=== PATIENT | male | born 1940 | race Caucasian/White ===

== ENCOUNTER 2019-08-15 17:27 | Emergency (ER) | payer MEDICARE ==
--- NOTE | 2019-08-15 18:03 | ERPHSYRPT ---
- History of Present Illness Source: patient, family () Exam Limitations: no limitations Patient Subjective Stated Complaint: Pt states "I was told to take synthroid and a new blood pressure med and the first time I started to take them I had these same symptoms. I am twitching and have these involuntary movements and I cannot control my movements. I was told to try them again and I tried them again on fri and now the symptoms are worse." Triage Nursing Assessment: Pt presented alert and oriented X 3, skin pwd Pt havig uncontrollable muscle movement. pt in no apparent respiratory distress. Timing/Duration: other (difficult to establish a time-line) Severity: moderate Character of Deficits: Left Facial (more so in the neck muscles, choreiform movements), LUE (choreiform movements) Deficits: off balance (left leg involved to a less extent than the arm) Baseline/Normal Cognition: alert oriented x 3 Current Cognition: alert oriented x 3 Baseline Gait: walks w/o assistance (some difficulty) Associated Symptoms: denies symptoms, No confusion, No fever, No seizures Hx Tetanus, Diphtheria Vaccination/Date Given: Yes Hx Influenza Vaccination/Date Given: Yes Hx Pneumococcal Vaccination/Date Given: Yes Immunizations Up to Date: Yes <DELGADO KOENIG - Last Filed: 08/15/19 19:58> <AARON KILGORE - Last Filed: 08/15/19 21:37> - History of Present Illness Time Seen by Provider: 08/15/19 18:02 Physician History: LITA Landers in [facility] had him recently on norvasc, after a few weeks on that, started synthroid, then developed movement disorder type symptoms, he thinks from the synthroid. Stopped norvasc and synthroid and he returned to normal. LITA Landers had him restart the synthroid only, and the movement disorder started again. He is not on anti-psychotics. No recent illness (sore throat). No hx Parkinson's or any neuro disorder. (DELGADO KOENIG) Allergies/Adverse Reactions: No Known Drug Allergies Allergy (Verified 08/15/19 17:43) Home Medications: Amlodipine Besylate 5 mg [Norvasc 5 mg] 5 mg PO DAILY 08/15/19 [History] Aspirin [Aspirin EC] 81 mg PO 08/15/19 [History] Etanercept [Enbrel] 50 mg SQ WEEKLY 08/15/19 [History] Levothyroxine Sodium 25 Mcg [Synthroid 25 Mcg] 25 mcg PO DAILY 08/15/19 [ History] - Review of Systems Constitutional: No Symptoms Eyes: No Symptoms Ears, Nose, & Throat: No Symptoms Respiratory: No Symptoms Cardiac: No Symptoms Abdominal/Gastrointestinal: No Symptoms Genitourinary Symptoms: No Symptoms Musculoskeletal: No Symptoms Skin: No Symptoms Neurological: Other (choreiform movements) Psychological: No Symptoms Endocrine: No Symptoms Hematologic/Lymphatic: No Symptoms Immunological/Allergic: No Symptoms All Other Systems: Reviewed and Negative <DELGADO KOENIG - Last Filed: 08/15/19 19:58> - Past Medical History Pertinent Past Medical History: Yes Neurological History: No Pertinent History ENT History: Cataracts Cardiac History: High Cholesterol, Hypertension Respiratory History: No Pertinent History Endocrine Medical History: Hyperthyroidism Musculoskeletal History: No Pertinent History GI Medical History: GERD History: No Pertinent History Psycho-Social History: No Pertinent History Male Reproductive Disorders: No Pertinent History - Past Surgical History Past Surgical History: No Neuro Surgical History: No Pertinent History - Social History Smoking Status: Former smoker Exposure to second hand smoke: No Drug Use: none Patient Lives Alone: No <DELGADO KOENIG - Last Filed: 08/15/19 19:58> - [place] Coma Scale Best Eye Response ([place]): (4) open spontaneously Best Verbal Response ([place]): (5) oriented Best Motor Response ([place]): (6) obeys commands [place] Total: 15 - Physical Exam General Appearance: no apparent distress, alert, other (choreiform ) Eye Exam: bilateral eye: normal inspection, PERRL, EOMI Ears, Nose, Throat Exam: normal ENT inspection Neck Exam: normal inspection, non-tender Respiratory: normal breath sounds Cardiovascular: regular rate/rhythm Gastrointestinal: soft Rectal Exam: deferred Back Exam: normal inspection Extremity Exam: normal inspection, normal range of motion Mental Status: alert, oriented x 3, cooperative explosive operator Exam: normal hearing, normal speech, PERRL Coordination/Gait: abnormal gait (choreiform) Motor/Sensory: weak motor strength LUE (choreiform movements, anastacio. left arm, somewhat left neck) Skin Exam: normal color, warm, dry SpO2 Interpretation: normal SpO2: 98 O2 Delivery: Room Air <DELGADO KOENIG - Last Filed: 08/15/19 19:58> - Nursing Vital Signs Nursing Vital Signs: Initial Vital Signs Temperature 98.0 F 08/15/19 17:34 Pulse Rate 98 H 08/15/19 17:34 Respiratory Rate 18 08/15/19 17:34 Blood Pressure 190/103 08/15/19 17:34 O2 Sat by Pulse Oximetry 98 08/15/19 17:34 Pain Scale Pain Intensity 0 - Course Nursing assessment & vital signs reviewed: Yes <DELGADO KOENIG - Last Filed: 08/15/19 19:58> Ordered Tests: Active Orders 24 hr Category Date Time Status NPO (ED) STAT Care 08/15/19 18:25 Active HEAD WITHOUT CONTRAST [CT] Stat Exams 08/15/19 18:27 Taken CBC W DIFF Stat Lab 08/15/19 18:39 Completed CMP Stat Lab 08/15/19 18:39 Completed T4 (Thyroxine) Stat Lab 08/15/19 18:39 Completed TSH [TSH, 3RD Generation] Stat Lab 08/15/19 18:39 Completed UA W/RFX UR CULTURE Stat Lab 08/15/19 18:40 Completed Medication Summary Discontinued Medications Generic Name Dose Route Start Last Admin Trade Name Abdias PRN Reason Stop Dose Admin Clonidine 0.2 mg 08/15/19 18:51 08/15/19 19:15 Catapres 0.1 Mg PO 08/15/19 18:52 0.2 mg STAT ONE Administration Clonidine Confirm 08/15/19 19:15 Catapres 0.1 Mg Administered 08/15/19 19:16 Dose 0.2 mg .ROUTE .STK-MED ONE Haloperidol Lactate 2 mg 08/15/19 19:48 08/15/19 20:16 Haldol 5 Mg IM 08/15/19 19:49 Not Given STAT ONE Haloperidol Lactate 5 mg 08/15/19 20:04 08/15/19 20:12 Haldol 5 Mg IM 08/15/19 20:05 5 mg STAT ONE Administration Haloperidol Lactate Confirm 08/15/19 20:05 Haldol 5 Mg Administered 08/15/19 20:06 Dose 5 mg .ROUTE .STK-MED ONE Lab/Rad Data: Laboratory Result Diagrams 08/15/19 18:39 08/15/19 18:39 Laboratory Results 08/15/19 08/15/19 08/15/19 Range/Units 18:40 18:39 18:39 WBC (4.0-10.5) K/mm3 RBC (4.1-5.6) M/mm3 Hgb (12.5-18.0) gm/dl Hct (42-50) % MCV (78-100) fl MCH (26-32) pg MCHC (32-36) g/dl RDW (11.5-14.0) % Plt Count (150-450) K/mm3 MPV (6-9.5) fl Gran % (36.0-66.0) % Eos # (Auto) (0-0.5) Absolute Lymphs (auto) (1.0-4.6) Absolute Monos (auto) (0.0-1.3) Lymphocytes % (24.0-44.0) % Monocytes % (0.0-12.0) % Eosinophils % (0.00-5.0) % Basophils % (0.0-0.4) % Absolute Granulocytes (1.4-6.9) Basophils # (0-0.4) Sodium 143 (137-145) mmol/L Potassium 3.9 (3.5-5.1) mmol/L Chloride 107 (98-107) mmol/L Carbon Dioxide 27 (22-30) mmol/L Anion Gap 12.4 (5-15) MEQ/L BUN 16 (9-20) mg/dL Creatinine 0.79 (0.66-1.25) mg/dL Estimated GFR > 60.0 ML/MIN Glucose 103 (74-106) mg/dL Calcium 9.3 (8.4-10.2) mg/dL Total Bilirubin 0.40 (0.2-1.3) mg/dL AST 23 (17-59) U/L ALT 13 (0-50) U/L Alkaline Phosphatase 112 (38-126) U/L Serum Total Protein 7.7 (6.3-8.2) g/dL Albumin 4.0 (3.5-5.0) g/dL Thyroxine (T4) 9.26 (5.53-10.96) ug/dL TSH 3rd Generation 9.060 H (0.47-4.68) mIU/L Urine Color STRAW (YELLOW) Urine Appearance CLEAR (CLEAR) Urine pH 7.0 (5-6) Ur Specific [place] 1.006 (1.005-1.025) Urine Protein NEGATIVE (Negative) Urine Ketones NEGATIVE (NEGATIVE) Urine Blood NEGATIVE (0-5) Darin/ul Urine Nitrite NEGATIVE (NEGATIVE) Urine Bilirubin NEGATIVE (NEGATIVE) Urine Urobilinogen NEGATIVE (0-1) mg/dL Ur Leukocyte Esterase NEGATIVE (NEGATIVE) Urine WBC (Auto) 0-2 (0-5) /HPF Urine RBC (Auto) NONE (0-2) /HPF U Epithel Cells (Auto) NONE (FEW) /HPF Urine Bacteria (Auto) RARE (NEGATIVE) /HPF Urine Culture Reflexed NO (NO) Urine Glucose NEGATIVE (NEGATIVE) mg/dL 08/15/19 Range/Units 18:39 WBC 8.0 (4.0-10.5) K/mm3 RBC 4.99 (4.1-5.6) M/mm3 Hgb 15.3 (12.5-18.0) gm/dl Hct 43.6 (42-50) % MCV 87.4 (78-100) fl MCH 30.7 (26-32) pg MCHC 35.1 (32-36) g/dl RDW 14.0 (11.5-14.0) % Plt Count 267 (150-450) K/mm3 MPV 10.0 H (6-9.5) fl Gran % 63.8 (36.0-66.0) % Eos # (Auto) 0.54 H (0-0.5) Absolute Lymphs (auto) 1.63 (1.0-4.6) Absolute Monos (auto) 0.67 (0.0-1.3) Lymphocytes % 20.5 L (24.0-44.0) % Monocytes % 8.4 (0.0-12.0) % Eosinophils % 6.8 H (0.00-5.0) % Basophils % 0.5 (0.0-0.4) % Absolute Granulocytes 5.08 (1.4-6.9) Basophils # 0.04 (0-0.4) Sodium (137-145) mmol/L Potassium (3.5-5.1) mmol/L Chloride (98-107) mmol/L Carbon Dioxide (22-30) mmol/L Anion Gap (5-15) MEQ/L BUN (9-20) mg/dL Creatinine (0.66-1.25) mg/dL Estimated GFR ML/MIN Glucose (74-106) mg/dL Calcium (8.4-10.2) mg/dL Total Bilirubin (0.2-1.3) mg/dL AST (17-59) U/L ALT (0-50) U/L Alkaline Phosphatase (38-126) U/L Serum Total Protein (6.3-8.2) g/dL Albumin (3.5-5.0) g/dL Thyroxine (T4) (5.53-10.96) ug/dL TSH 3rd Generation (0.47-4.68) mIU/L Urine Color (YELLOW) Urine Appearance (CLEAR) Urine pH (5-6) Ur Specific [place] (1.005-1.025) Urine Protein (Negative) Urine Ketones (NEGATIVE) Urine Blood (0-5) Darin/ul Urine Nitrite (NEGATIVE) Urine Bilirubin (NEGATIVE) Urine Urobilinogen (0-1) mg/dL Ur Leukocyte Esterase (NEGATIVE) Urine WBC (Auto) (0-5) /HPF Urine RBC (Auto) (0-2) /HPF U Epithel Cells (Auto) (FEW) /HPF Urine Bacteria (Auto) (NEGATIVE) /HPF Urine Culture Reflexed (NO) Urine Glucose (NEGATIVE) mg/dL <DELGADO KOENIG - Last Filed: 08/15/19 19:58> - Progress Progress: improved, re-examined <AARON KILGORE - Last Filed: 08/15/19 21:37> - Progress Progress Note: 08/15/19 20:00 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 Kilgore will assume care, 1999. (DELGADO KOENIG) 08/15/19 21:33 Signs of abnormal movements have completely resolved. Patient feels much better and is asymptomatic subjectively. (AARON KILGORE) <DELGADO KOENIG - Last Filed: 08/15/19 19:58> - Departure Departure Disposition: Home Critical Care Time: No <AARON KILGORE - Last Filed: 08/15/19 21:37> - Departure Clinical Impression: Choreiform movements Condition: Good Referrals: Provider,Unknown [Primary Care Provider] - 08/16/19 (Follow-up with your doctor on 08/16/2019) Instructions: Dystonia, High Blood Pressure (DC) Additional Instructions: Make certain to follow-up in the morning of 08/16/2019. Return immediately back to the emergency department if any worse at any time.
[2019-08-15 18:43] LABS: BASOPHIL % 0.5 % (0.0-0.4); Basophil (Absolute #) 0.04 (0-0.4); Eosinophil % 6.8 % (0.00-5.0); Eosinophil (Absolute #) 0.54 (0-0.5); Granulocyte Absolute (ANC) 5.08 (1.4-6.9); Granulocytes % 63.8 % (36.0-66.0); Hematocrit 43.6 % (42-50); Hemoglobin 15.3 gm/dl (12.5-18.0); Lymphocyte (Absolute #) 1.63 (1.0-4.6); Lymphocytes % 20.5 % (24.0-44.0); Mean Cell Volume 87.4 fl (78-100); Mean Corpuscular Hemoglobin 30.7 pg (26-32); Mean Corpuscular Hgb Concent. 35.1 g/dl (32-36); Monocyte (Absolute #) 0.67 (0.0-1.3); Monocytes % 8.4 % (0.0-12.0); Platelet Count 267 K/mm3 (150-450); Red Blood Count 4.99 M/mm3 (4.1-5.6)
[2019-08-15] MEDS ORDERED: Catapres 0.1 MG PO ONE (18:51)
[2019-08-15 18:53] LABS: ALKALINE PHOSPHATASE 112 U/L (38-126); ANION GAP 12.4 MEQ/L (5-15); BLOOD UREA NITROGEN 16 mg/dL (9-20); CHLORIDE 107 mmol/L (98-107); Calcium 9.3 mg/dL (8.4-10.2); Carbon Dioxide 27 mmol/L (22-30); Creatinine 1 0.79 mg/dL (0.66-1.25); Glucose 103 mg/dL (74-106); Potassium 3.9 mmol/L (3.5-5.1); SGOT/AST 23 U/L (17-59); SGPT/ALT 13 U/L (0-50); SODIUM 143 mmol/L (137-145); Total Protein 7.7 g/dL (6.3-8.2)
[2019-08-15 19:08] LABS: Appearance CLEAR (CLEAR); Bacteria RARE /HPF (NEGATIVE); Bilirubin NEGATIVE (NEGATIVE); Blood NEGATIVE Ery/ul (0-5); Glucose NEGATIVE (NEGATIVE); Ketones NEGATIVE (NEGATIVE); Leukocyte Esterase NEGATIVE (NEGATIVE); Nitrite NEGATIVE (NEGATIVE); Protein,Urine Dip NEGATIVE (Negative); Specific Gravity 1.006 (1.005-1.025); Urobilinogen NEGATIVE mg/dL (0-1); WBC 0-2 /HPF (0-5)
[2019-08-15] MEDS ORDERED: Catapres 0.1 MG ONE (19:15)
[2019-08-15 19:24] LABS: T4 (Thyroxine) 9.26 ug/dL (5.53-10.96); TSH, 3RD Generation 9.06 mIU/L (0.47-4.68)
[2019-08-15] MEDS ORDERED: Haldol 5 MG IM ONE ×2 (19:48→20:04)
[2019-08-15 20:03] VITALS: O2SAT 98
[2019-08-15] MEDS ORDERED: Haldol 5 MG ONE (20:05)
[2019-08-15 22:24] VITALS: BP 128/74; PULSE 78
--- NOTE | 2019-08-16 09:59 | XRAY ---
Exam: CT of the head without IV contrast from 08/15/2019. CTDI: 69.38 Indication: Dizzy spells that began 2-3 weeks ago when he started new thyroid medication. Comparison: None. Technique: Non-IV contrast axial images were obtained through the brain. Reconstructed coronal and sagittal images were created and reviewed. Findings: The ventricles appear of unremarkable size and configuration. The patient's head is slightly tilted in the CT gantry. Faint bilateral basal ganglia calcifications are seen. No focal mass effect or midline shift is seen. No acute intracranial bleed or abnormal extra-axial fluid collection is seen. Subtle scattered white matter changes are seen consistent with mild chronic microvascular disease. This is not unexpected for the patient's age group. No dominant low-attenuation territorial infarct is seen. Some atherosclerotic vascular calcification is seen within the distal ICAs. Structures of the posterior fossa appear unremarkable. The calvarium of the skull appears intact without fracture or other significant focal bone lesion. Subtle mucosal thickening is seen at the medial margin of both maxillary sinuses. I note more pronounced scattered mucosal mucoperiosteal thickening within the ethmoid sinuses, left greater than right.. No paranasal sinus air-fluid levels are seen. I do not detect any mastoid air cells on the left. Apparently, this is chronic. The mastoid air cells on the right appear unremarkable without effusion. The orbits appear grossly unremarkable. Impression: 1. No acute intracranial bleed or other acute intracranial disease is seen. 2. Mild chronic ethmoid sinus disease/sinusitis. I see no air-fluid levels. There is also slight mucosal thickening at the medial margin of both maxillary sinuses.
== END 2019-08-15 22:23 | disposition home or self-care (01) ==
LOC: ED 17:27
DX: R25.8 Other abnormal involuntary movements (principal)
CPT/HCPCS: 36415; 70450; 80053; 81001; 84436; 84443; 85025; 86060; 96372; 99284; J1630; A9270-GY

== ENCOUNTER 2024-04-27 10:58 | Emergency (ER) | payer MEDICARE, OTHER ==
[2024-04-27 11:09] VITALS: RESP 18; TEMP 97.5; O2SAT 97
--- NOTE | 2024-04-27 11:13 | ERPHSYRPT ---
- History of Present Illness Time Seen by Provider: 04/27/24 11:05 Source: patient Exam Limitations: no limitations Patient Subjective Stated Complaint: Pt states "[facility] and I told the that I had bubbles in my urine and I am peeing all ot." Triage Nursing Assessment: Pt presented alert and oriented X 3, skin pwd. Pt in no apparent respiratory distress. Pt resting comfortably on the bed. Physician History: Patient has had increasing urinary frequency over the last 6 weeks, with bubbles in his urine. He tried to get into his providers at the [facility], but no urine was ever tested and he got no prescription sent and that he was told he potentially would get sent. Patient denies any recent fevers, denies any abdominal pain, denies any blood in his urine, denies any black or red stools, denies any chest pain, denies any dizziness, denies any weakness generalized or focal in his extremities and has no other complaints currently. Timing/Duration: week(s) (Approximately 6) Activites at Onset: none Quality: other (No symptoms of discomfort) Onset Location: unknown Pain Radiation: none Severity of Pain-Max: none Severity of Pain-Current: none Modifying Factors: Worsens With: urinating Associated Symptoms: urinary frequency, No abdominal pain, No fever, No chills, No diaphoresis, No nausea, No vomiting, No dysuria, No polyuria, No loss of bladder control, No lower back pain, No lumps, No mass, No swelling, No syncope Prior abdominal problems: none Sexual intercourse history: non-contributory Allergies/Adverse Reactions: No Known Drug Allergies Allergy (Verified 08/15/19 17:43) Home Medications: Amlodipine Besylate 5 mg [Norvasc 5 mg] 5 mg PO DAILY 08/15/19 [History] Aspirin [Aspirin EC] 81 mg PO 08/15/19 [History] Etanercept [Enbrel] 50 mg SQ WEEKLY 08/15/19 [History] Levothyroxine Sodium 25 Mcg [Synthroid 25 Mcg] 25 mcg PO DAILY 08/15/19 [History] Hx Tetanus, Diphtheria Vaccination/Date Given: Yes Hx Influenza Vaccination/Date Given: Yes Hx Pneumococcal Vaccination/Date Given: Yes Immunizations Up to Date: No Travel Risk - International Travel Have you traveled outside of the country in past 3 weeks: No - Emerging Infectious Disease Are you exhibiting symptoms associated with any current EIDs: No - Past Medical History Pertinent Past Medical History: Yes Neurological History: No Pertinent History ENT History: Cataracts Cardiac History: High Cholesterol, Hypertension Respiratory History: No Pertinent History Endocrine Medical History: Hyperthyroidism Musculoskeletal History: No Pertinent History GI Medical History: GERD History: No Pertinent History Psycho-Social History: No Pertinent History Male Reproductive Disorders: No Pertinent History - Past Surgical History Past Surgical History: No Neuro Surgical History: No Pertinent History - Social History Smoking Status: Former smoker Exposure to second hand smoke: No Drug Use: none Patient Lives Alone: No - Social Determinants of Health Will the patient participate in the screening: Declined to provide - Review of Systems Constitutional: No Fever, No Chills Eyes: No Symptoms, No Eye Pain, No Eye Redness, No Vision Changes Ears, Nose, & Throat: No Symptoms, No Painful Swallowing Respiratory: No Cough, No Dyspnea Cardiac: No Chest Pain, No Edema, No Syncope Abdominal/Gastrointestinal: No Abdominal Pain, No Nausea, No Vomiting, No Diarrhea, No Hematemesis, No Hematochezia Genitourinary Symptoms: Frequency, No Dysuria, No Hematuria, No Urinary Retention, No Flank Pain, No Testicle Pain Musculoskeletal: No Back Pain, No Neck Pain Skin: No Rash Neurological: No Dizziness, No Focal Weakness, No Sensory Changes Psychological: No Symptoms Endocrine: No Symptoms Hematologic/Lymphatic: No Easy Bleeding, No Easy Bruising All Other Systems: Reviewed and Negative - Nursing Vital Signs Nursing Vital Signs: Initial Vital Signs Temperature 97.5 F 04/27/24 11:05 Pulse Rate 55 L 04/27/24 11:05 Respiratory Rate 18 04/27/24 11:05 Blood Pressure 174/100 04/27/24 11:05 O2 Sat by Pulse Oximetry 97 04/27/24 11:05 Pain Scale Pain Intensity 0 - Physical Exam General Appearance: no apparent distress, alert Eye Exam: PERRL/EOMI Ears, Nose, Throat Exam: pharynx normal, moist mucous membranes Neck Exam: normal inspection, supple, No meningismus Respiratory Exam: normal breath sounds, lungs clear Cardiovascular Exam: regular rate/rhythm, normal heart sounds, normal peripheral pulses, No edema Gastrointestinal/Abdomen Exam: soft, normal bowel sounds, No tenderness, No distention, No mass, No guarding, No pulsatile mass, No rebound Back Exam: normal inspection, No CVA tenderness Extremity Exam: normal inspection, normal range of motion, No pedal edema Neurologic Exam: alert, oriented x 3, cooperative, yarn weigher II-XII nml as tested, sensation nml, No motor deficits Skin Exam: normal color, warm, dry, No rash SpO2 Interpretation: normal SpO2: 97 O2 Delivery: Room Air Ordered Tests: Active Orders 24 hr Category Date Time Status CULTURE,URINE Stat Lab 04/27/24 11:10 Received UA W/RFX UR CULTURE Stat Lab 04/27/24 11:10 Completed Lab/Rad Data: Laboratory Results 04/27/24 Range/Units 11:10 Urine Color Yellow (Yellow) Urine Appearance Cloudy A (Clear) Urine pH 6.0 (4.6-8.0) Ur Specific [place] 1.020 (1.005-1.030) Urine Protein Negative (Negative) Urine Glucose (UA) Negative (Negative) mg/dL Urine Ketones Negative (Negative) Urine Blood Negative (Negative) Urine Nitrite Positive A (Negative) Urine Bilirubin Negative (Negative) Urine Urobilinogen 1.0 A (0.2) mg/dL Ur Leukocyte Esterase Large A (Negative) U Hyaline Cast (Auto) NONE SEEN (0-2) /LPF Urine Microscopic RBC 0-2 (0-5) /HPF Urine Microscopic WBC >100 A (0-5) /HPF Ur Epithelial Cells None Seen (None Seen) /HPF Urine Bacteria Moderate A (None Seen) /HPF Urine Culture Reflexed YES (NO) - Progress Progress: unchanged Progress Note: 04/27/24 11:56 Patient is doing well overall, has no tenderness on repeat abdominal exam, no CVA tenderness and is afebrile and is alert, GCS 15 and mentating appropriately 04/27/24Patient is an 81-year-old male said urinary frequency over the last 6 weeks, he came in the emergency room to get further evaluation since he has not any medications called in by his medical provider. Patient other concerning rev iew of systems, had no other concerning physical exam findings, but his urinalysis was consistent with infection, so with no recent urine cultures to check for sensitivities, patient was started on cephalexin 3 times daily for 1 week as well as Pyridium for the next 2 days for symptomatic relief. Will just antibiotics according to urine culture results accordingly. Patient at this time can be discharged home does not require any other testing or imaging studies and can be followed up as an outpatient with a primary care provider in 3 days check response to therapy if we do not call him to adjust his antibiotic. Patient is to return back to the nearest emergency room for any fever, new back pain, new chest pain, shortness of breath, new skin rash, new bruising or any other concerning signs or symptoms that were not present at today's emergency room visit for immediate reevaluation in the nearest emergency Counseled pt/family regarding: lab results, need for follow-up Medical Desision Making - Diagnostic Testing Diagnostic test were ordered, analyzed, and reviewed by me: Yes - Risk of complications Low Risk: Low risk of morbidity from additional dx testing or treatment The pt has a mod risk of morbidity or mortality based on: Need for prescription drug management - Departure Departure Disposition: Home Clinical Impression: Acute cystitis without hematuria Condition: Good Critical Care Time: No Referrals: [facility]OSPITAL,'[facility] [Primary Care Provider] - Follow Up with PCP/3 days Instructions: Urinary Tract Infection, Adult (DC) Additional Instructions: Return back to the nearest emergency room for any new fever, new back pain, new abdominal pain, new inability urinate, new blood in urine, new confusion, new altered mental status, new chest pain, shortness of breath or any other concerning signs or symptoms that were not present at today's emergency room visit for immediate reevaluation in the nearest emergency room Prescriptions: Cephalexin Mh 500 mg [Keflex 500 mg] 500 mg PO TID #21 cap Phenazopyridine HCl 200 mg [Pyridium 200 mg] 200 mg PO TID PRN #6 tablet PRN Reason: Dysuria/Urinary Symptoms
[2024-04-27 11:43] LABS: Appearance Cloudy (Clear); Bacteria Moderate /HPF (None Seen); Bilirubin Negative (Negative); Blood Negative (Negative); Epithelial Cells None Seen /HPF (None Seen); Glucose, Urine Negative (Negative); Hyaline Casts NONE SEEN /LPF (0-2); Ketones Negative (Negative); Leukocyte Esterase Large (Negative); Nitrite Positive (Negative); Protein,Urine Dip Negative (Negative); RBC 0-2 /HPF (0-5); WBC >100 /HPF (0-5)
[2024-04-27 11:47] LABS: ADD URINE CULTURE? YES (NO)
[2024-04-27 12:06] VITALS: BP 124/70; PULSE 57
== END 2024-04-27 12:11 | disposition home or self-care (01) ==
LOC: ED 10:58
DX: N30.00 Acute cystitis without hematuria (principal); R39.89 Other symptoms and signs involving the genitourinary system; R35.0 Frequency of micturition; E78.5 Hyperlipidemia, unspecified; I10 Essential (primary) hypertension; Z79.899 Other long term (current) drug therapy
CPT/HCPCS: 81001; 87077; 87086; 87186; 99283